=== PATIENT | male | born 1960 | race Caucasian/White ===

== ENCOUNTER 2018-02-18 15:10 | Emergency (ER) | payer OTHER ==
[2018-02-18] MEDS ORDERED: SODIUM CHLORIDE 0.9% FLUSH 10 ML FLUSH IVF (15:45)
[2018-02-18 16:05] LABS: AUTOMATED NEUTROPHIL # 5.8 TH/MM3 (1.8-7.7); BASOPHIL # 0.2 TH/MM3 (0-0.2); EOSINOPHIL # 0.1 TH/MM3 (0-0.4); EOSINOPHIL % 1.5 % (0.0-4.0); HEMATOCRIT 45.8 % (39.0-51.0); HEMO FLAGS DIFF FINAL; HEMOGLOBIN 15.8 GM/DL (13.0-17.0); LYMPH % 23.4 % (9.0-44.0); LYMPHOCYTE # 2.1 TH/MM3 (1.0-4.8); MEAN CELL VOLUME 95.7 FL (80.0-100.0); MEAN CORPUSCULAR HEMOGLOBIN 32.9 PG (27.0-34.0); MEAN CORPUSCULAR HGB CONC 34.4 % (32.0-36.0); MEAN PLATELET VOLUME 7.6 FL (7.0-11.0); MONO % 8.2 % (0.0-8.0); MONOCYTE # 0.7 TH/MM3 (0-0.9); NEUT % 64.9 % (16.0-70.0); PLATELET COUNT 318 TH/MM3 (150-450); RED BLOOD COUNT 4.79 MIL/MM3 (4.50-5.90); RED CELL DISTRIBUTION WIDTH 13.2 % (11.6-17.2); WHITE BLOOD COUNT 8.9 TH/MM3 (4.0-11.0)
[2018-02-18 16:12] LABS: CHLORIDE 103 MEQ/L (98-107); POTASSIUM 4.2 MEQ/L (3.5-5.1); SODIUM (NA) 139 MEQ/L (136-145)
[2018-02-18 16:16] LABS: ALBUMIN 3.5 GM/DL (3.4-5.0); ANION GAP 8 MEQ/L (5-15); BICARBONATE 27.8 MEQ/L (21.0-32.0); BLOOD UREA NITROGEN 9 MG/DL (7-18); CALCIUM 9.1 MG/DL (8.5-10.1); GLUCOSE,RANDOM 79 MG/DL (74-106); MAGNESIUM 1.9 MG/DL (1.5-2.5)
[2018-02-18 16:19] LABS: ALT (GPT) 27 U/L (12-78); AST (GOT) 19 U/L (15-37); CREATININE 0.86 MG/DL (0.60-1.30); GLOMERULAR FILTRATION RATE 91 ML/MIN (>89)
[2018-02-18 16:21] LABS: TOTAL BILIRUBIN ADULT 0.5 MG/DL (0.2-1.0); TOTAL PROTEIN 8.1 GM/DL (6.4-8.2)
[2018-02-18 16:22] LABS: ALKALINE PHOSPHATASE 138 U/L (45-117)
[2018-02-18 16:24] LABS: TROPONIN I LESS THAN 0.02 NG/ML (0.02-0.05)
[2018-02-18 16:40] LABS: CREATINE KINASE 51 U/L (39-308)
[2018-02-18] MEDS: SODIUM CHLOR 0.9% 1000 ML INJ 1,000 ML IV (17:19)
[2018-02-18] MEDS: ONDANSETRON HCL 4 MG/2 ML VIAL IVP (17:19)
== END 2018-02-18 17:46 | disposition left against medical advice (07) ==
LOC: PHED 17:46
DX: R07.9 Chest pain, unspecified (principal); R11.2 Nausea with vomiting, unspecified; R19.7 Diarrhea, unspecified; R51 Headache; I48.91 Unspecified atrial fibrillation; E11.9 Type 2 diabetes mellitus without complications; E78.5 Hyperlipidemia, unspecified; Z79.899 Other long term (current) drug therapy
CPT/HCPCS: 70450; 71045; 80053; 82550; 83735; 84484; 85025; 93005; 96374; 99285-25